=== PATIENT | female | born 1975 | race African-American/Black ===

== ENCOUNTER 2022-06-29 08:06 | Outpatient (CLI) | payer BC | END 2022-06-29 08:07 | disposition home or self-care (01) | LOC: CSHLAB 08:06 | PROVIDERS: ATTEND Surgery | DX: Z20.822 Contact with and (suspected) exposure to COVID-19 (principal); K21.9 Gastro-esophageal reflux disease without esophagitis | CPT/HCPCS: 87811 ==

== ENCOUNTER 2022-07-03 06:24 | Day surgery (SDC) | payer BC ==
[2022-06-29 17:07] VITALS: BMI 40.0
[2022-07-03] MEDS ORDERED: Lidocaine 1% MPF 2 ML VIAL ONE (07:13)
[2022-07-03] MEDS ORDERED: PROPOFOL 60 ML ONE (07:18)
[2022-07-03] MEDS ORDERED: Lidocaine 1% PF 5 ML VIAL ONE (07:19)
== END 2022-07-03 08:19 | disposition home or self-care (01) ==
LOC: CSHSDC 06:24
PROVIDERS: ATTEND Surgery
PROC: 0DB68ZX Excision of Stomach, Via Natural or Artificial Opening Endoscopic, Diagnostic (ICD-10-PCS; principal; 2022-07-03)
DX: K31.7 Polyp of stomach and duodenum (principal); K21.9 Gastro-esophageal reflux disease without esophagitis; K29.70 Gastritis, unspecified, without bleeding; K44.9 Diaphragmatic hernia without obstruction or gangrene; E66.01 Morbid (severe) obesity due to excess calories; Z68.41 Body mass index [BMI] 40.0-44.9, adult; I10 Essential (primary) hypertension; E11.9 Type 2 diabetes mellitus without complications; G47.33 Obstructive sleep apnea (adult) (pediatric); Z20.822 Contact with and (suspected) exposure to COVID-19; Z79.84 Long term (current) use of oral hypoglycemic drugs; Z79.899 Other long term (current) drug therapy; Z98.890 Other specified postprocedural states
CPT/HCPCS: 88305; J2704